=== PATIENT | male | born 1970 | race Two or more races ===

== ENCOUNTER 2023-11-10 14:12 | Emergency (ER) | payer MEDICARE, MEDICAID ==
[~2023-11-10] VITALS: Ht 167.6 cm; Wt 68.0 kg
[2023-11-10 14:17] VITALS: TEMP 97.9
[2023-11-10] MEDS ORDERED: ACETAMINOPHEN ES 500 MG TABLET ONE (14:35)
[2023-11-10] MEDS: IV NS 0.9% 500 ML BAG IV ONE (14:40)
[2023-11-10] MEDS: ACETAMINOPHEN ES 500 MG TABLET PO ONE (14:40)
[2023-11-10 15:53] VITALS: BP 131/80; O2SAT 98
== END 2023-11-10 15:53 | disposition home or self-care (01) ==
LOC: EDBD 14:52 → ER 14:52
DX: G40.909 Epilepsy, unspecified, not intractable, without status epilepticus (principal); R51.9 Headache, unspecified
CPT/HCPCS: 99283; J7040